=== PATIENT | female | born 1955 | race American Indian/Alaskan Native ===

== ENCOUNTER 2018-01-11 05:51 | Observation (INO) | payer MEDICARE, BC ==
[2018-01-11 05:51] VITALS: BMI 44.9
[2018-01-11] MEDS ORDERED: Aspirin 325 mg EC Tablets PO STA (06:16)
--- NOTE | 2018-01-11 06:16 | C.PDOC ---
Addendum entered and electronically signed by Porfirio Gomez DO 01/11/18 08:52: Addendum Addendum: 01/11/18 07:43 CT Head FINDINGS: HEMORRHAGE: No intracranial hemorrhage. BRAIN: No mass effect or edema. Scattered focal lucencies in the subcortical and periventricular white matter suggestive for chronic microvascular ischemic carla nge. Dense calcification along the anterior falx. Calcified pineal gland. Bilateral basal ganglia calcifications. Probable streak artifact at the level of the right temporal lobe. VENTRICLES: Unremarkable. No hydrocephalus. CALVARIUM: Unremarkable. PARANASAL SINUSES: Unremarkable as visualized. No significant inflammatory changes. MASTOID AIR CELLS: Unremarkable as visualized. No inflammatory changes. OTHER FINDINGS: Intracranial arterial calcifications. IMPRESSION: No acute intracranial abnormality. Chronic microvascular ischemic changes. If symptoms persists, consider correlation with MRI. 01/11/18 08:20 CT results, and plan for admission discussed with patient, who is agreeable. Call placed to Dr. Garay, patient's PMD. 01/11/18 08:[address] Garay, recommending to consult with Dr. Savannah Amaro. 01/11/18 08:[address] Savannah Amaro, who accepts patient for admission. Original Note: History Of Present Illness Patient woke up and when attempting to go to the bathroom, became very dizzy. After laying down again, dizziness subsided and developed chest paiun . 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 No f/c/n/v. No visual changes, no weakness or slurred speech Time Seen by Provider: 01/11/18 06:15 Chief Complaint (Nursing): Chest Pain History Per: Patient History/Exam Limitations: no limitations Onset/Duration Of Symptoms: Hrs Current Symptoms Are (Timing): Still Present Context: Other Severity: Moderate Pain Scale Rating Of: 4 Quality: Dull Associated Symptoms: Nausea Exacerbating Factors: Turning, Movement Alleviating Factors: None Recent travel outside of the [place]: No Additional History Per: Family Past Medical History Reviewed: Historical Data, Nursing Documentation, Vital Signs Vital Signs: Last Vital Signs Temp 97.6 F 01/11/18 06:02 Pulse 64 01/11/18 06:02 Resp 16 01/11/18 06:02 BP 125/68 01/11/18 06:02 Pulse Ox 99 01/11/18 06:02 - Medical History PMH: Diabetes, HTN, Hypercholesterolemia Surgical History: CABG (triple) Denies: Pacemaker - [facility] Procedures ENDOSC POLYPECTOMY OF LG INTEST (12/02/06) ESOPHAGOGASTRODUODENOSCOPY [EGD] W/CLOSED BIOPSY (09/13/12) TOTAL KNEE REPLACEMENT (09/13/12) Family History: States: No Known Family Hx - Social History Hx Tobacco Use: No Hx Alcohol Use: No Hx Substance Use: No - Immunization History Hx Tetanus Toxoid Vaccination: No Hx Influenza Vaccination: Yes Hx Pneumococcal Vaccination: Yes Review Of Systems Constitutional: Negative for: Fever, Chills Eyes: Negative for: Redness ENT: Negative for: Throat Pain Cardiovascular: Positive for: Chest Pain Respiratory: Negative for: Shortness of Breath Gastrointestinal: Positive for: Nausea. Negative for: Vomiting, Abdominal Pain Genitourinary: Negative for: Dysuria Musculoskeletal: Negative for: Back Pain Neurological: Positive for: Dizziness. Negative for: Weakness Psych: Negative for: Anxiety Physical Exam - Physical Exam Appears: Non-toxic Skin: Warm, Dry Head: Normacephalic Eye(s): bilateral: Normal Inspection Oral Mucosa: Moist Throat: No Erythema Neck: Supple Chest: Symmetrical Cardiovascular: Rhythm Regular Respiratory: No Rales, No Rhonchi, No Wheezing Gastrointestinal/Abdominal: Soft, No Tenderness Back: Normal Inspection Extremity: Normal ROM Extremity: Bilateral: Atraumatic, Normal Color And Temperature, Normal ROM Pulses: Left Dorsalis Pedis: Normal, Right Dorsalis Pedis: Normal Neurological/Psych: Oriented x3, Normal Speech, Normal Cognition, Other (neg nystagmus) Gait: Unsteady ED Course And Treatment - Laboratory Results Result Diagrams: 01/11/18 06:17 01/11/18 06:17 ECG: Interpreted By Me, Viewed By Me ECG Rhythm: Sinus Rhythm (64), Nonspecific Changes O2 Sat by Pulse Oximetry: 99 Pulse Ox Interpretation: Normal - Radiology CXR: Interpreted by Me, Viewed By Me Disposition - Disposition Referrals: Arley Garay MD [Primary Care Provider] - Disposition Time: 06:40 Condition: FAIR Forms: [facility] (Yi) - Clinical Impression Clinical Impression: Chest pain Physician Patient Turnover Patient Signed Over To: Porfirio Gomez Handoff Comments: pending labs, disposition
[2018-01-11 06:22] LABS: BASO % 0.2 % (0.0-2.0); EOS # 0.1 K/uL (0.0-0.7); EOS % 2.3 % (0.0-4.0); HEMOGLOBIN 13.6 g/dL (11.0-16.0); LYMPH # 2.7 K/uL (1.0-4.3); LYMPH % 51.4 % (20.0-40.0); MEAN CELL VOLUME 93.3 fL (81.0-99.0); MEAN CORPUSCULAR HGB CONC 34.3 g/dL (33.0-37.0); MEAN PLATELET VOLUME 10.8 fL (7.2-11.7); MONO # 0.6 K/uL (0.0-0.8); MONO % 11.3 % (0.0-10.0); NEUT # 1.8 K/uL (1.8-7.0); NEUT % 34.8 % (50.0-75.0); NRBC % 0.1 % (0.0-2.0); RBC 4.26 Mil/uL (3.80-5.20); RED CELL DISTRIBUTION WIDTH 13.6 % (11.5-14.5); WHITE BLOOD COUNT 5.2 K/uL (4.8-10.8)
[2018-01-11] MEDS ORDERED: Aspirin 325 mg EC Tablets PO ONE (06:26)
[2018-01-11 06:30] LABS: PROTHROMBIN TIME 11.3 SECONDS (9.7-12.2)
[2018-01-11 06:40] LABS: ALB/GLOB RATIO 1.2 (1.0-2.1); ALT/SGPT 89 U/L (9-52); AST/SGOT 53 U/L (14-36); BLOOD UREA NITROGEN 27 mg/dL (7-17); CALCIUM 9.4 mg/dl (8.6-10.4); GFR NON-AFRICAN AMERICAN > 60; LIPASE 66 U/L (23-300)
[2018-01-11 06:51] LABS: B-TYPE NATRIURETIC PEPTIDE 54.7 pg/mL (0-900)
--- NOTE | 2018-01-11 07:47 | CT ---
Date of service: 01/11/2018 PROCEDURE: CT HEAD WITHOUT CONTRAST. HISTORY: dizziness COMPARISON: None available. TECHNIQUE: Axial computed tomography images were obtained through the head/brain without intravenous contrast. Radiation dose: Total exam DLP = 1125.56 mGy-cm. This CT exam was performed using one or more of the following dose reduction techniques: Automated exposure control, adjustment of the mA and/or kV according to patient size, and/or use of iterative reconstruction technique. FINDINGS: HEMORRHAGE: No intracranial hemorrhage. BRAIN: No mass effect or edema. Scattered focal lucencies in the subcortical and periventricular white matter suggestive for chronic microvascular ischemic change. Dense calcification along the anterior falx. Calcified pineal gland. Bilateral basal ganglia calcifications. Probable streak artifact at the level of the right temporal lobe. VENTRICLES: Unremarkable. No hydrocephalus. CALVARIUM: Unremarkable. PARANASAL SINUSES: Unremarkable as visualized. No significant inflammatory changes. MASTOID AIR CELLS: Unremarkable as visualized. No inflammatory changes. OTHER FINDINGS: Intracranial arterial calcifications. IMPRESSION: No acute intracranial abnormality. Chronic microvascular ischemic changes. If symptoms persists, consider correlation with MRI. A preliminary report was generated at 7:21 a.m. on 01/11/[address] Juan Manuel Saravia from [facility].
[2018-01-11 07:53] LABS: SQUAMOUS EPITHIAL < 1 /hpf (0-5); URINE BILIRUBIN NEGATIVE (NEGATIVE); URINE BLOOD NEGATIVE (NEGATIVE); URINE CLARITY Clear (Clear); URINE COLOR Yellow (YELLOW); URINE GLUCOSE (UA) 2+ mg/dL (Normal); URINE LEUKOCYTE ESTERASE NEG Leu/uL (Negative); URINE PROTEIN NEGATIVE (NEGATIVE)
--- NOTE | 2018-01-11 11:29 | RAD ---
Date of service: 01/11/2018 PROCEDURE: CHEST RADIOGRAPH, 1 VIEW HISTORY: chest pain COMPARISON: 11/12/2015 FINDINGS: LUNGS: Clear allowing for summation of soft tissues-large body habitus. PLEURA: No pneumothorax or pleural fluid seen. CARDIOVASCULAR: Cardiomegaly. Midline sternotomy. No pulmonary venous congestion suspect. ere is presence of aortic atherosclerotic calcification on x-ray. OSSEOUS STRUCTURES: Midline sternotomy. Thoracic spondylosis. Bilateral shoulder arthrosis. Slightly greater right acromioclavicular joint space--correlate clinically. No superior inferior offset suggested VISUALIZED UPPER ABDOMEN: Normal. OTHER FINDINGS: None. IMPRESSION: Cardiomegaly-similar. No interval pathology noted.
--- NOTE | 2018-01-11 12:49 | CP.PCM.CON ---
History of Present Illness - History of Present Illness History of Present Illness: Patient woke up and when attempting to go to the bathroom, became very dizzy then developed chest paiun . Referred for ID eval for possible concurrent infection'denies fever or chills c/o chest pain and discomfort PMH DM CAD S/P CABG OA GOUT HTN s/p Bariatric surgery HLD s/p TKR x 2 Review of Systems - Review of Systems All systems: reviewed and no additional remarkable complaints except - Constitutional Constitutional: As Per HPI, Anorexia - EENT Eyes: absent: As Per HPI, Blind Spots, Blurred Vision, Change in Vision, Decreased Night Vision, Diplopia, Discharge, Dry Eye, Exophthalmos, Floaters, Irritation, Itchy Eyes, Loss of Peripheral Vision, Pain, Photophobia, Requires Corrective Lenses, Sees Flashes, Spots in Vision, Tunnel Vision, Other Visual Disturbances, Loss of Vision, Other Ears: absent: As Per HPI, Decreased Hearing, Ear Discharge, Ear Pain, Tinnitus, Abnormal Hearing, Disequilibrium, Dizziness, Other Nose/Mouth/Throat: absent: As Per HPI, Epistaxis, Nasal Congestion, Nasal Discharge, Nasal Obstruction, Nasal Trauma, Nose Pain, Post Nasal Drip, Sinus Pain, Sinus Pressure, Bleeding Gums, Change in Voice, Dental Pain, Dry Mouth, Dysphagia, Halitosis, Hoarsness, Lip Swelling, Mouth Lesions, Mouth Pain, Odynophagia, Sore Throat, Throat Swelling, Tongue Swelling, Facial Pain, Neck Pain, Neck Mass, Other - Breasts Breasts: absent: As Per HPI, Change in Shape, Mass, Pain, Nipple Discharge, Nipple Inversion, Skin Changes, Swelling, Other - Cardiovascular Cardiovascular: As Per HPI - Respiratory Respiratory: absent: As Per HPI, Cough, Dyspnea, Hemoptysis, Dyspnea on Exert ion, Wheezing, Snoring, Stridor, Pain on Inspiration, Chest Congestion, Excessive Mucous Production, Change in Mucous Color, Pain with Coughing, Other - Gastrointestinal Gastrointestinal: As Per HPI - Genitourinary Genitourinary: absent: As Per HPI, Change in Urinary Stream, Difficulty Urinating, Dysuria, Flank Pain, Hematuria, Pyuria, Nocturia, Urinary Incontinence, Urinary Frequency, Urinary Hesitance, Urinary Urgency, Voiding Freq/Small Amts, Freq UTI, Hx Renal/Bladder Calculi, Hx /Renal Surgery, Bladder Distension, Other - Reproductive: Female Reproductive:Female: absent: As Per HPI, Amenorrhea, Amenorrhea/ Control, Currently Menstual, Cycle <21 Days, Cycle >35 Days, Cycle Variable, Menses 1-7 Days, Menses >/= 8 Days, Menses Variable, Cycle > 4 Weeks Between, No Menses for 6 Months, Heavy Menses, Light Menses, Normal Menses, Spotting Between Cycles, S/P Hysterectomy, Menopausal, Post Menopausal, Premenarche, Abnormal Vaginal Bleeding, Dysmenorrhea, Dyspareunia, Genital Lesions, Genital Pruritis, Pelvic Pain, Prolapse Symptoms, Sexual Dysfunction, Vaginal Discharge, Vaginal Dryness, Vaginal Odor, Vaginal Pruritis, Other - Menstruation Menstruation: absent: As Per HPI, Amenorrhea, Amenorrhea/ Control, Currently Menstual, Cycle <21 Days, Cycle >35 Days, Cycle Variable, Menses 1-7 Days, Menses >/= 8 Days, Menses Variable, Cycle > 4 Weeks Between, No Menses for 6 Months, Heavy Menses, Light Menses, Normal Menses, Spotting Between Cycles, S/P Hysterectomy, Menopausal, Post Menopausal, Premenarche, Abnormal Vaginal Bleeding, Dysmenorrhea, Other - Musculoskeletal Musculoskeletal: absent: As Per HPI, Abnormal Gait, Arthralgias, Atrophy, Back Pain, Deformity, Joint Swelling, Limited Range of Motion, Loss of Height, Muscle Cramps, Muscle Weakness, Myalgias, Neck Pain, Numbness, Radiating Pain into Limb, Stiffness, Tingling, Other - Integumentary Integumentary: absent: As Per HPI, Acne, Alopecia, Bleeding Lesions, Change in Hair, Change in Nails, Change in Pigmentation, Changing Lesions, Dry Skin, Erythema, Furuncle, Hirsutism, Lesions, New Lesions, Non-Healing Lesions, Photosensitivity, Pruritus, Rash, Skin Pain, Skin Ulcer, Sores, Striae, Swelling, Unusual Bruising, Wounds, Jaundice, Other - Neurological Neurological: absent: As Per HPI, Abnormal Gait, Abnormal Hearing, Abnormal M ovements, Abnormal Speech, Behavioral Changes, Burning Sensations, Confusion, Convulsions, Disequilibrium, Dizziness, Numbness, Focal Weakness, Frequent Falls, Headaches, Lack of Coordination, Loss of Vision, Memory Loss, Paresthesias, Radicular Pain, Restless Legs, Sensory Deficit, Syncope, Tingling, Tremor, Vertigo, Weakness, Other Visual Disturbances, Other - Psychiatric Psychiatric: absent: As Per HPI, Abnormal Sleep Pattern, Anhedonia, Anxiety, Auditory Hallucinations, Behavioral Changes, Change in Appetite, Change in Libido, Confusion, Depression, Difficulty Concentrating, Hallucinations, Homicidal Ideation, Hopelessness, Irritability, Memory Loss, Mood Swings, Panic Attacks, Paranoia, Suicidal Ideation, Visual Hallucinations, Tactile Hallucinat ions, Other - Endocrine Endocrine: As Per HPI - Hematologic/Lymphatic Hematologic: As Per HPI. absent: Easy Bleeding, Easy Bruising, Lymphadenopathy, Other Past Patient History - Infectious Disease Hx of Infectious Diseases: None - Past Social History Smoking Status: Never Smoked - CARDIAC Hx Hypercholesterolemia: Yes Hx Hypertension: Yes Hx Pacemaker: No - NEUROLOGICAL Hx Paralysis: No - ENDOCRINE/METABOLIC Hx Diabetes Mellitus Type 1: Yes - HEMATOLOGICAL/ONCOLOGICAL Hx Blood Transfusions: No Hx Blood Transfusion Reaction: No - MUSCULOSKELETAL/RHEUMATOLOGICAL Hx Falls: No - GASTROINTESTINAL Hx Gastroesophageal Reflux: Yes - PSYCHIATRIC Hx Substance Use: No - SURGICAL HISTORY Hx Coronary Artery Bypass Graft: Yes (triple) - ANESTHESIA Hx Anesthesia: Yes Hx Anesthesia Reactions: No Hx Malignant Hyperthermia: No Meds Allergies/Adverse Reactions: Allergies Allergy/AdvReac Type Severity Reaction Status Date / Time No Known Allergies Allergy Verified 01/11/18 05:57 - Medications Medications: Current Medications Allopurinol (Zyloprim) 100 mg PO BID [facility] Aspirin (Ecotrin) 81 mg PO DAILY [facility] Ergocalciferol (Drisdol 50,000 Intl Units Cap) 1 cap PO Q7D [facility] Furosemide (Lasix) 20 mg PO QAM [facility] Glimepiride (Amaryl) 8 mg PO QAM [facility] Home Med (Empagliflozin [Jardiance]) 10 mg PO QAM [facility] Home Med (Insulin Degludec [Tresiba Flextouch U-100]) 60 unit SQ QAM [facility] Home Med (Insulin Lispro [Humalog (Insulin Lispro)]) 5 unit SQ ACTID [facility] Metformin HCl (Glucophage) 500 mg PO BRK [facility] Metoprolol Tartrate (Lopressor) 50 mg PO BID [facility] Pantoprazole Sodium (Protonix Ec Tab) 40 mg PO DAILY [facility] Rosuvastatin Calcium (Crestor) 10 mg PO HS [facility] Physical Exam - Constitutional Appears: Well - Head Exam Head Exam: ATRAUMATIC, NORMAL INSPECTION, NORMOCEPHALIC - Eye Exam Eye Exam: EOMI, Normal appearance, PERRL Pupil Exam: NORMAL ACCOMODATION, PERRL - ENT Exam ENT Exam: Mucous Membranes Moist, Normal Exam - Neck Exam Neck exam: Positive for: Normal Inspection - Respiratory Exam Respiratory Exam: Clear to Auscultation Bilateral, NORMAL BREATHING PATTERN - Cardiovascular Exam Cardiovascular Exam: REGULAR RHYTHM - GI/Abdominal Exam GI & Abdominal Exam: Normal Bowel Sounds, Soft. absent: Tenderness - Rectal Exam Rectal Exam: NORMAL INSPECTION - Extremities Exam Extremities exam: Positive for: normal inspection - Back Exam Back exam: NORMAL INSPECTION - Neurological Exam Neurological exam: Alert, CN II-XII Intact, Normal Gait, Oriented x3, Reflexes Normal - Psychiatric Exam Psychiatric exam: Normal Affect, Normal Mood - Skin Skin Exam: Dry, Intact, Normal Color, Warm Results - Vital Signs Recent Vital Signs: Last Vital Signs Temp 97.6 F 01/11/18 06:02 Pulse 62 01/11/18 09:07 Resp 19 01/11/18 09:07 BP 98/43 L 01/11/18 09:07 Pulse Ox 100 01/11/18 09:07 - Labs Result Diagrams: 01/11/18 06:17 01/11/18 06:17 Labs: Laboratory Results - last 24 hr 01/11/18 01/11/18 01/11/18 06:17 06:17 06:17 WBC 5.2 RBC 4.26 Hgb 13.6 D Hct 39.8 MCV 93.3 D MCH 32.0 H MCHC 34.3 RDW 13.6 Plt Count 168 MPV 10.8 Neut % (Auto) 34.8 L Lymph % (Auto) 51.4 H [place] % (Auto) 11.3 H Eos % (Auto) 2.3 Baso % (Auto) 0.2 Neut # (Auto) 1.8 Lymph # (Auto) 2.7 [place] # (Auto) 0.6 Eos # (Auto) 0.1 Baso # (Auto) 0.0 PT 11.3 INR 1.0 APTT 29 Sodium 138 Potassium 3.4 L Chloride 98 Carbon Dioxide 30 Anion Gap 13 BUN 27 H Creatinine 0.9 Est GFR ( Amer) > 60 Est GFR (Non-Af Amer) > 60 POC Glucose (mg/dL) Random Glucose 152 H Calcium 9.4 Total Bilirubin 0.5 AST 53 H ALT 89 H D Alkaline Phosphatase 135 H Troponin I < 0.0120 NT-Pro-B Natriuret Pep 54.7 Total Protein 7.5 Albumin 4.0 Globulin 3.5 Albumin/Globulin Ratio 1.2 Lipase 66 Urine Color Urine Clarity Urine pH Ur Specific Martin Urine Protein Urine Glucose (UA) Urine Ketones Urine Blood Urine Nitrate Urine Bilirubin Urine Urobilinogen Ur Leukocyte Esterase Urine WBC (Auto) Urine RBC (Auto) Ur Squamous Epith Cells 01/11/18 01/11/18 07:39 11:36 WBC RBC Hgb Hct MCV MCH MCHC RDW Plt Count MPV Neut % (Auto) Lymph % (Auto) [place] % (Auto) Eos % (Auto) Baso % (Auto) Neut # (Auto) Lymph # (Auto) [place] # (Auto) Eos # (Auto) Baso # (Auto) PT INR APTT Sodium Potassium Chloride Carbon Dioxide Anion Gap BUN Creatinine Est GFR ( Amer) Est GFR (Non-Af Amer) POC Glucose (mg/dL) 186 H Random Glucose Calcium Total Bilirubin AST ALT Alkaline Phosphatase Troponin I NT-Pro-B Natriuret Pep Total Protein Albumin Globulin Albumin/Globulin Ratio Lipase Urine Color Yellow Urine Clarity Clear Urine pH 5.0 Ur Specific Martin 1.021 Urine Protein Negative Urine Glucose (UA) 2+ H Urine Ketones Negative Urine Blood Negative Urine Nitrate Negative Urine Bilirubin Negative Urine Urobilinogen 2.0 H Ur Leukocyte Esterase Neg Urine WBC (Auto) < 1 Urine RBC (Auto) < 1 Ur Squamous Epith Cells < 1 Assessment & Plan (1) Chest pain Status: Acute (2) Vertigo Status: Acute (3) Viral syndrome Status: Acute (4) Acute viral syndrome Status: Acute (5) Viral syndrome Status: Acute - Assessment and Plan (Free Text) Assessment: continue observation consider admission for deconditioning possible CAROLINE
[2018-01-11 17:29] LABS: CK-MB 0.76 ng/mL (0.0-3.38)
[2018-01-11 17:41] LABS: HEPATITIS B SURFACE AG Negative (NEGATIVE)
[2018-01-11] MEDS: (Novolog) Insulin Aspart, Recombinant 100 u/ml 10 ml vial SC SCH (17:46)
[2018-01-11 17:47] LABS: HEPATITIS A IGM NEGATIVE (NEGATIVE); HEPATITIS B CORE AB NEGATIVE (NEGATIVE)
[2018-01-11 17:59] LABS: HEPATITIS C ANTIBODY NEGATIVE (NEGATIVE)
--- NOTE | 2018-01-11 23:59 | HP ---
HISTORY OF PRESENT ILLNESS: This is a 62-year-old black female, came to the emergency room with history of dizziness associated with movements. The patient was feeling spinning around the room. The patient also has a history of nausea and vomiting. No history of abdominal pain. No history of diarrhea. The patient also complained of retrosternal chest pain, not radiating. No diaphoresis. The patient also complained of dizziness. REVIEW OF SYSTEMS: CARDIOVASCULAR SYSTEM: Positive for chest pain. RESPIRATORY SYSTEM: Negative for shortness of breath. GASTROINTESTINAL SYSTEM: Positive for nausea and vomiting. CENTRAL NERVOUS SYSTEM: Dizziness present. Vertigo present. No edema of the legs. No fever. GENITOURINARY: No urinary complaints. PSYCHIATRIC: The patient is stable. All other systems are negative. PAST HISTORY: History of hypertension, diabetes. No myocardial infarction. Possible coronary artery disease. MEDICATIONS: The patient's medications are reviewed by me. FAMILY HISTORY: No known inherited disease. SOCIAL HISTORY: Nonsmoker, nonalcoholic, and no IVDA. ALLERGIES: NO KNOWN ALLERGIES. PHYSICAL EXAMINATION: GENERAL: This is a 62-year-old black female, alert, oriented, comfortable. VITAL SIGNS: With a temperature 98.8 degrees, pulse 64 per minute, respirations normal, and blood pressure 120/82 mmHg. HEENT: Normal. NECK: JVP is flat. Carotids, no bruits. LUNGS: No rales. No wheezing. HEART: S1 and S2 are normal. No gallop. No murmur. ABDOMEN: Soft. Nontender. No organomegaly. CENTRAL NERVOUS SYSTEM: No focal neurological deficit. No edema of the legs. LABORATORY DATA: On admission, EKG is normal sinus rhythm. No acute ST-T changes noted. First set of troponin is negative. The patient's chest x-ray shows cardiomegaly. The patient also has CAT scan of the head done, which is negative for any bleed or stroke. Lab work shows hypokalemia of 3.4, BUN elevated 27, blood sugar 152. Other lab work appears within normal limits. The patient also has elevated LFTs. IMPRESSION: 1. Dizziness with chest pain. 2. Vertigo. 3. Rule out acute coronary syndrome. 4. Diabetes mellitus. 5. Hypokalemia. PLAN: The patient will be admitted to the floor. We will get consult with Dr. Garay. We will get consult with . Other workup as needed. Amos Amaro MD
--- NOTE | 2018-01-12 01:06 | CON ---
DATE: 01/11/2018 CARDIOLOGY CONSULTATION REQUESTING PHYSICIANS: Arley Garay MD and Amos Amaro MD HISTORY OF PRESENT ILLNESS: This is a 62-year-old female with a history of hypertension, CAD, previous CABG who was brought in with dizziness, vertigo, and chest pain. The patient has been with recurrent chest pain while in the hospital, lying in the bed, described as sharp pain, occurring in the left shoulder and substernal, lasting for a few seconds, increased with bulb at times. She has a longstanding history of hypertension, diabetes, and had a CABG done in 2004 at [facility]. She had a stress test done about two years ago, which was unremarkable. Recent echocardiogram also had been showing normal LV systolic function. Currently, she is on glimepiride, Crestor, aspirin, metformin, Lasix, metoprolol tartrate 50 mg twice a day, insulin, allopurinol. PAST MEDICAL HISTORY: History of CABG, hysterectomy, both total knee replacement, lap band in 2005. PERSONAL HISTORY: Does not smoke. Does not drink. She is not . No EtOH abuse. FAMILY HISTORY: Sister, aunt, and one uncle with diabetes. REVIEW OF SYSTEMS: CONSTITUTIONAL: Generalized weakness is noted. EYES: She wears glasses but denies any visual disturbances. EARS: No hearing loss. RESPIRATORY: Negative for cough. No productive cough. No hemoptysis. NECK: No swollen glands in the neck. CARDIAC: Recurrent occasional chest pains, which are atypical. Dyspnea on exertion although she walks with great difficulty using a walker. History of hypertension. No documented DE in the past. GASTROINTESTINAL: Burning reflux. NEUROLOGIC: Negative for headache but dizziness is noted and vertigo recently for last two days. MUSCULOSKELETAL SYSTEM: Positive for back pains, knee pains, and ankle pains. GENITOURINARY: Negative for hematuria. PSYCHIATRIC: Negative for depression. EXTREMITIES: No pedal edema. PHYSICAL EXAMINATION: GENERAL: Middle-aged obese female, in no acute distress. VITAL SIGNS: Blood pressure is 144/80, heart rate of 70, respiratory rate of 20, afebrile. HEENT: Head is normocephalic. Eyes, no pallor and no icterus. Complete dentures are noted. NECK: Right soft carotid bruits. HEART: PMI is not localized. S1 and S2 are distant. No definite gallops. Soft early systolic murmur, grade 2/6 is noted in the mitral area. ABDOMEN: Soft, nontender. EXTREMITIES: No cyanosis, clubbing, or edema. Distal pulses are 1+. MUSCULOSKELETAL SYSTEM: Osteoarthritis. SKIN: Scar of CABG in midsternal line and venous stripping in the right leg. NEUROLOGIC: The patient is awake, alert, oriented x3. LABORATORY DATA: Shows a hemoglobin of 13.6. Potassium is 3.2. LFTs are elevated. Troponin's are negative. Her EKG had a sinus rhythm, nonspecific ST-T changes. ASSESSMENT: This is a 62-year-old female with a history of known coronary artery disease, coronary artery bypass grafting, hypertension, diabetes. Has presented with vertigo and a chest pain which appears to be atypical in nature. RECOMMENDATIONS: We will obtain another EKG now. Continue followup on more enzymes. Would not recommend to change in medical therapy at this point. Also does not need any nuclear stress tests at this point. We will continue the medical therapy and control the risk factors. I thank you kindly. We will follow as needed. Rickey Cooper MD
[2018-01-12] MEDS: (Novolog) Insulin Aspart, Recombinant 100 u/ml 10 ml vial SC SCH ×3 (08:18→17:31)
[2018-01-12] MEDS ORDERED: Perflutren Lipid Microsphere 1.5 ML SUS IV ONE (09:06)
[2018-01-12] MEDS ORDERED: Home Med 1 UNIT (Empagliflozin [Jardiance] 10 MG) PO SCH (10:00)
[2018-01-12] MEDS ORDERED: INSULIN DEGLUDEC 60 UNIT SQ SCH (10:00)
[2018-01-12] MEDS: Pantoprazole 40 mg EC Tab PO SCH (10:39)
--- NOTE | 2018-01-12 11:37 | CARD ---
APPROVED REPORT Date of service: 01/11/2018 EKG Measurement Heart [id number] <Conclusion> Normal sinus rhythm Nonspecific T wave abnormality Abnormal ECG
--- NOTE | 2018-01-12 11:37 | CARD ---
APPROVED REPORT Date of service: 01/11/2018 EKG Measurement Heart [id number] <Conclusion> Normal sinus rhythm, non specific st t changes
--- NOTE | 2018-01-12 12:05 | CP.PCM.PN ---
Subjective - Date & Time of Evaluation Date of Evaluation: 01/12/18 Time of Evaluation: 12:01 - Subjective Subjective: CONDITION SAME. VS WNL. REPEAT EKG WNL. TROPONIN NEG. Objective - Vital Signs/Intake and Output Vital Signs (last 24 hours): Temp Pulse Resp BP Pulse Ox 97.1 F L 46 L 20 103/57 L 96 01/12/18 08:31 01/12/18 08:31 01/12/18 08:31 01/12/18 10:43 01/12/18 08:31 - Medications Medications: Current Medications Allopurinol (Zyloprim) [address] [facility] Last Admin: 01/12/18 10:39 Dose: 100 mg Aspirin (Ecotrin) [address] [facility] Last Admin: 01/12/18 10:47 Dose: 81 mg Ergocalciferol (Drisdol 50,000 Intl Units Cap) [address] [facility] Furosemide (Lasix) [address] [facility] Last Admin: 01/12/18 10:43 Dose: 20 mg Glimepiride (Amaryl) [address] [facility] Last Admin: 01/12/18 10:38 Dose: 8 mg Heparin Sodium (Porcine) (Heparin) 5,[address] [facility] Insulin Aspart (Novolog) [address] [facility] Last Admin: 01/12/18 08:18 Dose: 5 units Metformin HCl (Glucophage) [address] [facility] Last Admin: 01/12/18 08:18 Dose: 500 mg Metoprolol Tartrate (Lopressor) [address] [facility] Last Admin: 01/12/18 10:45 Dose: Not Given Pantoprazole Sodium (Protonix Ec Tab) [address] [facility] Last Admin: 01/12/18 10:39 Dose: 40 mg Rosuvastatin Calcium (Crestor) [address] [facility] Last Admin: 01/11/18 22:02 Dose: 10 mg - Labs Labs: 01/11/18 06:17 01/11/18 06:17 PT 11.3 SECONDS (9.7-12.2) 01/11/18 06:17 INR 1.0 01/11/18 06:17 APTT 29 SECONDS (21-34) 01/11/18 06:17 - Constitutional Appears: No Acute Distress, Chronically Ill - Eye Exam Eye Exam: Normal appearance, PERRL - ENT Exam ENT Exam: Mucous Membranes Moist - Respiratory Exam Respiratory Exam: Clear to Ausculation Bilateral, NORMAL BREATHING PATTERN - Cardiovascular Exam Cardiovascular Exam: REGULAR RHYTHM, +S1, +S2 - GI/Abdominal Exam GI & Abdominal Exam: Soft, Normal Bowel Sounds - Extremities Exam Extremities Exam: Full ROM, Normal Capillary Refill, Normal Inspection. absent: Joint Swelling, Pedal Edema - Back Exam Back Exam: NORMAL INSPECTION - Neurological Exam Neurological Exam: Alert, Awake, CN II-XII Intact, Normal Gait, Oriented x3 - Psychiatric Exam Psychiatric exam: Normal Affect, Normal Mood Assessment and Plan - Assessment and Plan (Free Text) Assessment: STABLE. Plan: D/C HOME. F/U WITH DR. Christel VASQUEZ. CT SAME MEDS.
--- NOTE | 2018-01-12 12:08 | CARD ---
APPROVED REPORT Date of service: 01/12/2018 EXAM: Two-dimensional and M-mode echocardiogram with Doppler, color Doppler with contrast. Other Information Quality : GoodRhythm : INDICATION Dizziness and Vertigo Dyspnea Chest Pain Surgery/Intervention CABG: RISK FACTORS Hypertension Hyperlipidemia Diabetes 2D DIMENSIONS IVSd1.1 (0.7-1.1cm)LVDd4.4 (3.9-5.9cm) PWd1.2 (0.7-1.1cm)LVDs2.8 (2.5-4.0cm) FS (%) 37.1 %LVEF (%)67.3 (>50%) M-Mode DIMENSIONS Left Atrium (MM)4.28 (2.5-4.0cm)IVSd1.18 (0.7-1.1cm) Aortic Root3.53 (2.2-3.7cm)LVDd5.41 (4.0-5.6cm) Aortic Cusp Exc.2.38 (1.5-2.0cm)PWd1.10 (0.7-1.1cm) FS (%) 41 %LVDs3.18 (2.0-3.8cm) LVEF (%)72 (>50%) Mitral Valve MV E [place]464.8cm/sMV A Blkyvbjo480.4cm/sE/A ratio1.0 TDI Lateral E' Peak V9.45cm/sMedial E' Peak V5.90cm/sE/Lateral E'12.7 E/Medial E'20.3 Tricuspid Valve TR Peak [id number]/sTR Peak Gr.[id number] LEFT VENTRICLE The left ventricle is normal size. There is mild concentric left ventricular hypertrophy. The Ejection Fraction is 60-65%. There is normal LV segmental wall motion. The left ventricular diastolic function is normal. RIGHT VENTRICLE The right ventricle is normal size. The right ventricular systolic function is normal. ATRIA The left atrium is mildly dilated. suspicious for mass in la,2.5 cm x 2.5 cm,attached to lateral wall,? thrombus. AORTIC VALVE The aortic valve is mildly sclerotic. The aortic valve is trileaflet. No aortic regurgitation is present. MITRAL VALVE The mitral valve is thickened but opens well. Mitral regurgitation is trace. TRICUSPID VALVE The tricuspid valve is normal in structure. There is mild tricuspid regurgitation. Right ventricular systolic pressure is estimated at 26 mmHg. There is no pulmonary hypertension. PULMONIC VALVE The pulmonary valve is normal in structure. GREAT VESSELS The aortic root is normal size. The aortic root displays mild sclerocalcific changes of the aortic root. The IVC is normal in size and collapses >50% with inspiration. PERICARDIAL EFFUSION There is no pericardial effusion. <Conclusion> The left ventricle is normal size. There is mild concentric left ventricular hypertrophy. The Ejection Fraction is 60-65%. The left ventricular diastolic function is normal. The left atrium is mildly dilated. The left atrium is mildly dilated. suspicious for mass in la,2.5 cm x 2.5 cm,attached to lateral wall,? thrombus. The aortic valve is mildly sclerotic. The aortic valve is trileaflet. There is no pericardial effusion. suggest veronika.
[2018-01-12 12:28] LABS: BLOOD UREA NITROGEN 19 mg/dL (7-17); CALCIUM 9.5 mg/dl (8.6-10.4); GFR NON-AFRICAN AMERICAN > 60
[2018-01-12] MEDS ORDERED: Aluminum Hydroxide/Magnesium Hydroxide Susp (30 mL) PO ONE (14:45)
--- NOTE | 2018-01-12 17:30 | CP.PCM.PN ---
Subjective - Date & Time of Evaluation Date of Evaluation: 01/12/18 Time of Evaluation: 08:00 - Subjective Subjective: still dizzy and weak Objective - Vital Signs/Intake and Output Vital Signs (last 24 hours): Temp Pulse Resp BP Pulse Ox 98.6 F 59 L 18 126/79 98 01/12/18 15:50 01/12/18 15:50 01/12/18 15:50 01/12/18 15:50 01/12/18 15:50 - Medications Medications: Current Medications Allopurinol (Zyloprim) 100 mg PO BID [facility]S [facility] Last Admin: 01/12/18 10:39 Dose: 100 mg Aspirin (Ecotrin) 81 mg PO DAILY [facility] 234 [facility]S [facility] Last Admin: 01/12/18 10:47 Dose: 81 mg Ergocalciferol (Drisdol 50,000 Intl Units Cap) 1 cap PO Q7D [facility] 234 [facility]S [facility] Furosemide (Lasix) 20 mg PO QAM [facility] 234 B[facility]S [facility] Last Admin: 01/12/18 10:43 Dose: 20 mg Glimepiride (Amaryl) 8 mg PO QAM [facility] 234 B[facility]S [facility] Last Admin: 01/12/18 10:38 Dose: 8 mg Heparin Sodium (Porcine) (Heparin) 5,000 units SC Q8 [facility] 234 [facility]S [facility] Last Admin: 01/12/18 14:46 Dose: 5,000 units Insulin Aspart (Novolog) 5 unit SC ACTID [facility] 234 B[facility]S [facility] Last Admin: 01/12/18 12:30 Dose: 5 units Metformin HCl (Glucophage) 500 mg PO BRK [facility] 234 B[facility]S [facility] Last Admin: 01/12/18 08:18 Dose: 500 mg Metoprolol Tartrate (Lopressor) 50 mg PO BID [facility] 234 B[facility]S [facility] Last Admin: 01/12/18 10:45 Dose: Not Given Pantoprazole Sodium (Protonix Ec Tab) 40 mg PO DAILY [facility] 234 B[facility]S [facility] Last Admin: 01/12/18 10:39 Dose: 40 mg Rosuvastatin Calcium (Crestor) 10 mg PO HS [facility] 234 BEDS [facility] Last Admin: 01/11/18 22:02 Dose: 10 mg - Labs Labs: 01/11/18 06:17 01/12/18 11:32 PT 11.3 SECONDS (9.7-12.2) 01/11/18 06:17 INR 1.0 01/11/18 06:17 APTT 29 SECONDS (21-34) 01/11/18 06:17 - Constitutional Appears: Non-toxic, Chronically Ill - Head Exam Head Exam: NORMOCEPHALIC - Eye Exam Eye Exam: absent: Scleral icterus - ENT Exam ENT Exam: Mucous Membranes Dry - Neck Exam Neck Exam: absent: Lymphadenopathy - Respiratory Exam Respiratory Exam: Decreased Breath Sounds - Cardiovascular Exam Cardiovascular Exam: REGULAR RHYTHM - GI/Abdominal Exam GI & Abdominal Exam: Distended, Soft - Rectal Exam Rectal Exam: Deferred - Exam Exam: NORMAL INSPECTION Assessment and Plan (1) Chest pain Status: Acute (2) Vertigo Status: Acute (3) Viral syndrome Status: Acute (4) Acute viral syndrome Status: Acute (5) Viral syndrome Status: Acute - Assessment and Plan (Free Text) Assessment: influenza negative afebrile possible middle ear infection ? labarynthitis ? for RAMON supportive care follow up with Savannah Amaro
[2018-01-13] MEDS: (Novolog) Insulin Aspart, Recombinant 100 u/ml 10 ml vial SC SCH ×2 (07:54→11:30)
[2018-01-13] MEDS: Pantoprazole 40 mg EC Tab PO SCH (09:30)
[2018-01-13] MEDS ORDERED: Lidocaine 4% (Laryng-O-Jet) Kit MM ONE (10:23)
[2018-01-13] MEDS ORDERED: Propofol 10 mg/ml Inj (20 ML) ONE (10:32)
[2018-01-13] MEDS ORDERED: Midazolam 2 MG/2 ML VIAL ONE (10:32)
--- NOTE | 2018-01-13 11:50 | CARD ---
APPROVED REPORT Date of service: 01/13/2018 EXAM: Transesophageal echocardiogram with color flow Doppler. INDICATION Rule out LA mass Mitral Valve E/A ratio0.0 TDI E/Lateral E'0.0E/Medial E'0.0 LEFT VENTRICLE The left ventricle is normal size. The left ventricular function is normal. The left ventricular ejection fraction is within the normal range. There is normal LV segmental wall motion. No left ventricle thrombus noted on this study. There is no ventricular septal defect visualized. There is no left ventricular aneurysm. There is no mass noted in the left ventricle. RIGHT VENTRICLE The right ventricle is normal size. The right ventricular systolic function is normal. ATRIA The left atrium size is normal. There is no mass or thrombus suspected in the left atrium. The right atrium size is normal. The interatrial septum is intact with no evidence for an atrial septal defect. AORTIC VALVE The aortic valve is normal in structure. There is no aortic valvular vegetation. MITRAL VALVE The mitral valve is normal in structure. Mitral regurgitation is mild. TRICUSPID VALVE The tricuspid valve is normal in structure. There is mild tricuspid regurgitation. PULMONIC VALVE The pulmonary valve is normal in structure. There is trace to mild pulmonic valvular regurgitation. GREAT VESSELS The aortic root is normal in size. The ascending aorta is normal in size. The pulmonary artery is normal. <Conclusion> No evidence of atrial mass normal Lv sysotlic funciton
--- NOTE | 2018-01-13 12:45 | CP.PCM.PN ---
Subjective - Date & Time of Evaluation Date of Evaluation: 01/13/18 Time of Evaluation: 12:43 - Subjective Subjective: CONDITION SAMW. FEELS BETTER. RAMON DONE , NEG FOR CLOT. VS WNL. DISCUSSED WITH DR. VASQUEZ. OK FOR D/C.. Objective - Vital Signs/Intake and Output Vital Signs (last 24 hours): Temp Pulse Resp BP Pulse Ox 98.2 F 89 20 133/81 98 01/13/18 07:35 01/13/18 07:35 01/13/18 07:35 01/13/18 09:29 01/13/18 07:35 - Medications Medications: Current Medications Allopurinol (Zyloprim) 100 mg PO BID [facility] Last Admin: 01/13/18 09:30 Dose: 100 mg Aspirin (Ecotrin) 81 mg PO DAILY [facility] Last Admin: 01/13/18 09:30 Dose: 81 mg Ergocalciferol (Drisdol 50,000 Intl Units Cap) 1 cap PO Q7D [facility] Furosemide (Lasix) 20 mg PO QAM [facility] Last Admin: 01/13/18 09:29 Dose: 20 mg Glimepiride (Amaryl) 8 mg PO QAM [facility] Last Admin: 01/13/18 09:28 Dose: Not Given Heparin Sodium (Porcine) (Heparin) 5,000 units SC Q8 [facility] Last Admin: 01/13/18 06:24 Dose: 5,000 units Insulin Aspart (Novolog) 5 unit SC ACTID [facility] Last Admin: 01/13/18 07:54 Dose: Not Given Metformin HCl (Glucophage) 500 mg PO BRK [facility] Last Admin: 01/13/18 07:54 Dose: Not Given Metoprolol Tartrate (Lopressor) 50 mg PO BID [facility] Last Admin: 01/13/18 09:30 Dose: 50 mg Pantoprazole Sodium (Protonix Ec Tab) 40 mg PO DAILY [facility] Last Admin: 01/13/18 09:30 Dose: 40 mg Rosuvastatin Calcium (Crestor) 10 mg PO HS [facility] Last Admin: 01/12/18 21:58 Dose: 10 mg - Labs Labs: 01/11/18 06:17 01/12/18 11:32 PT 11.3 SECONDS (9.7-12.2) 01/11/18 06:17 INR 1.0 01/11/18 06:17 APTT 29 SECONDS (21-34) 01/11/18 06:17 - Constitutional Appears: No Acute Distress - Eye Exam Eye Exam: Normal appearance Pupil Exam: PERRL - Respiratory Exam Respiratory Exam: Clear to Ausculation Bilateral, NORMAL BREATHING PATTERN - Cardiovascular Exam Cardiovascular Exam: REGULAR RHYTHM, +S1, +S2 - GI/Abdominal Exam GI & Abdominal Exam: Soft, Normal Bowel Sounds - Extremities Exam Extremities Exam: Full ROM, Normal Capillary Refill, Normal Inspection. absent: Joint Swelling, Pedal Edema - Back Exam Back Exam: NORMAL INSPECTION - Neurological Exam Neurological Exam: Alert, Awake, CN II-XII Intact, Normal Gait, Oriented x3 - Psychiatric Exam Psychiatric exam: Normal Affect, Normal Mood Assessment and Plan - Assessment and Plan (Free Text) Assessment: CAD. Plan: D/C HOME.
[2018-01-13 15:44] VITALS: BP 127/80; PULSE 64; RESP 18; TEMP 98.7; O2SAT 96
[2018-01-17] MEDS ORDERED: Ergocalciferol 50,000 Intl Units Cap PO SCH (10:00)
== END 2018-01-13 16:37 | disposition home or self-care (01) ==
LOC: C.ER 05:51 → SUPCPDRO 05:51 → C.6T 08:44
PROVIDERS: ADMIT Internal Medicine; ATTEND Internal Medicine
DX: R07.89 Other chest pain (principal); R42 Dizziness and giddiness; B34.9 Viral infection, unspecified; I25.10 Atherosclerotic heart disease of native coronary artery without angina pectoris; E87.6 Hypokalemia; I10 Essential (primary) hypertension; E10.59 Type 1 diabetes mellitus with other circulatory complications; M19.90 Unspecified osteoarthritis, unspecified site; M10.9 Gout, unspecified; E78.00 Pure hypercholesterolemia, unspecified; E78.5 Hyperlipidemia, unspecified; K21.9 Gastro-esophageal reflux disease without esophagitis; Z95.1 Presence of aortocoronary bypass graft; Z98.84 Bariatric surgery status; Z79.4 Long term (current) use of insulin; Z90.710 Acquired absence of both cervix and uterus; Z96.659 Presence of unspecified artificial knee joint; Z83.3 Family history of diabetes mellitus
CPT/HCPCS: 36415; 70450; 71045; 80048; 80053; 80074; 81001; 82948; 83690; 83880; 84484; 85025; 85610; 85730; 87804; 93005; 93306; 93312; 96374; 99285; G0378; J1644; J2001; J2250; J2405; J2704